=== PATIENT | male | born 1960 | race Caucasian/White ===

== ENCOUNTER 2018-03-08 18:11 | Emergency (ER) | payer MEDICAID ==
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
[2018-03-08] MEDS ORDERED: CLOTRIMAZOLE/BETAMET DIPROP 15 GM CRTUBE TP ONE (18:56)
[2018-03-08] MEDS ORDERED: CEPHALEXIN 500 MG CAP PO ONE (18:56)
[2018-03-08 19:18] LABS: PLATELET COUNT 193 10^3/uL (150-400)
[2018-03-09] MEDS ORDERED: CEPHALEXIN 500 MG CAP PO SCH
[2018-03-09] MEDS ORDERED: PROPRANOLOL HCL 10 MG TAB PO SCH
[2018-03-09] MEDS ORDERED: GABAPENTIN 400 MG CAP PO SCH
[2018-03-09] MEDS ORDERED: LISINOPRIL 20 MG TAB PO SCH
[2018-03-09] MEDS ORDERED: FLUoxetine 20 MG CAP PO SCH
[2018-03-09] MEDS ORDERED: hydrOXYzine HCL 25 MG TAB PO SCH
[2018-03-09] MEDS ORDERED: QUEtiapine FUMARATE 100 MG TAB PO SCH
[2018-03-09] MEDS ORDERED: traZODone 100 MG TAB PO SCH
[2018-03-09] MEDS ORDERED: CEPHALEXIN 500 MG CAP PO ONE (04:12)
[2018-03-09] MEDS: CEPHALEXIN 500 MG CAP PO SCH ×4 (06:20→21:29)
[2018-03-09] MEDS ORDERED: ALBUTEROL 60 PUFFS/8 GM MDI IH ONE ×2 (15:18→15:45)
[2018-03-09] MEDS ORDERED: GABAPENTIN 100 MG CAP PO ONE (15:19)
[2018-03-09] MEDS ORDERED: LISINOPRIL 20 MG TAB PO ONE (15:19)
[2018-03-09 21:32] VITALS: BP 146/94
== END 2018-03-09 21:32 | disposition home or self-care (01) ==
DX: L03.114 Cellulitis of left upper limb (principal); I10 Essential (primary) hypertension; F17.200 Nicotine dependence, unspecified, uncomplicated; Z76.0 Encounter for issue of repeat prescription; Z86.59 Personal history of other mental and behavioral disorders
CPT/HCPCS: 80305; G0480